=== PATIENT | female | born 1945 | race Caucasian/White ===

== ENCOUNTER 2017-05-17 22:55 | Inpatient (IN) | payer OTHER, MEDICARE ==
[~2017-05-17] VITALS: Ht 157.5 cm; Wt 88.2 kg
[2017-05-17 23:07] VITALS: Ht 157.5 cm; Wt 88.2 kg
[2017-05-17] MEDS ORDERED: ATORVASTATIN CA40 M1 PO (23:44)
[2017-05-17] MEDS ORDERED: JANUVIA100 M1 PO (23:45)
[2017-05-17] MEDS ORDERED: COZAAR100 MG PO (23:45)
[2017-05-17] MEDS ORDERED: METFORMIN HCL1000 MG PO (23:45)
[2017-05-17] MEDS ORDERED: GLIPIZIDE10 M2 PO (23:46)
[2017-05-18 00:48] LABS: BASOPHIL % 0.4 % (0-2); PLATELET COUNT 217 x10^3mcL (130-400); RED CELL DISTRIBUTION WIDTH 13.4 % (11.5-14.5)
[2017-05-18 00:50] LABS: microscopic required? YES; urine erythrocyte NEGATIVE (NEGATIVE)
[2017-05-18 00:58] LABS: CALCIUM 8.9 mg/dL (8.5-10.1); CARBON DIOXIDE 26.5 mmol/L (21-32); CHLORIDE SERUM 105 mmol/L (98-107); GLUCOSE SERUM 259 mg/dL (74-106); POTASSIUM SERUM 4.1 mmol/L (3.5-5.1); SODIUM SERUM 142 mmol/L (136-145)
[2017-05-18 01:03] LABS: ALBUMIN 3.3 g/dL (3.4-5.0); ALKALINE PHOSPHATASE 117 U/L (46-116); ALT/SGPT 34 U/L (14-59); AST/SGOT 15 U/L (15-37); BILIRUBIN TOTAL 0.3 mg/dL (0.20-1.00); CHOLESTEROL 169 mg/dL (<200); HDL CHOLESTEROL 49 mg/dL (40-60); TOTAL PROTEIN, SERUM 7.4 g/dL (6.4-8.2)
[2017-05-18 03:12] VITALS: BP 142/56
[2017-05-18 03:23] LABS: CHOLESTEROL/HDL RATIO 3.3; MAGNESIUM 1.5 mg/dL (1.8-2.4); PHOSPHOROUS 3.2 mg/dL (2.5-4.9)
[2017-05-18 03:29] LABS: FREE T4 1.08 ng/dL (0.76-1.46); FREE THYROXINE INDEX 2.8 ug/dL (1.4-4.5); T3 TOTAL 0.83 ng/mL; T4(THYROXINE) 7.6 ug/dL (4.7-13.3)
[2017-05-18 04:01] LABS: AMPHETAMINE QUAL UR NONE DETECTED (NEG <=1000)
[2017-05-18 04:02] VITALS: BP 142/56
[2017-05-18 05:58] VITALS: BP 135/68
[2017-05-18 06:49] LABS: BASOPHIL % 0.2 % (0-2); PLATELET COUNT 207 x10^3mcL (130-400); RED CELL DISTRIBUTION WIDTH 13.7 % (11.5-14.5)
[2017-05-18 07:19] LABS: CALCIUM 8.4 mg/dL (8.5-10.1); CARBON DIOXIDE 25.4 mmol/L (21-32); CHLORIDE SERUM 107 mmol/L (98-107); CREATININE SERUM 0.8 mg/dL (0.6-1.0); GLUCOSE SERUM 215 mg/dL (74-106); MAGNESIUM 1.5 mg/dL (1.8-2.4); PHOSPHOROUS 3.2 mg/dL (2.5-4.9); SODIUM SERUM 143 mmol/L (136-145)
[2017-05-18 09:21] VITALS: BP 158/69
[2017-05-18 12:25] VITALS: BP 146/69
[2017-05-18 21:10] VITALS: BP 144/61
[2017-05-19] VITALS (7 sets, daily range): BP systolic 126–172; BP diastolic 49–73
[2017-05-19 06:17] LABS: CALCIUM 8.9 mg/dL (8.5-10.1); CARBON DIOXIDE 20.8 mmol/L (21-32); CHLORIDE SERUM 108 mmol/L (98-107); CREATININE SERUM 0.9 mg/dL (0.6-1.0); GLUCOSE SERUM 282 mg/dL (74-106); POTASSIUM SERUM 4.6 mmol/L (3.5-5.1); SODIUM SERUM 140 mmol/L (136-145)
[2017-05-19 06:24] LABS: BASOPHIL % 0.3 % (0-2); PLATELET COUNT 211 x10^3mcL (130-400); RED CELL DISTRIBUTION WIDTH 13.6 % (11.5-14.5)
[2017-05-20 05:12] VITALS: BP 145/65
[2017-05-20 06:08] LABS: PLATELET COUNT 217 x10^3mcL (130-400); RED CELL DISTRIBUTION WIDTH 14.3 % (11.5-14.5)
[2017-05-20 06:38] LABS: CALCIUM 9.3 mg/dL (8.5-10.1); CARBON DIOXIDE 22.7 mmol/L (21-32); CHLORIDE SERUM 107 mmol/L (98-107); CREATININE SERUM 0.9 mg/dL (0.6-1.0); GLUCOSE SERUM 246 mg/dL (74-106); POTASSIUM SERUM 4.6 mmol/L (3.5-5.1); SODIUM SERUM 138 mmol/L (136-145)
[2017-05-20 07:32] LABS: BAND NEUTROPHIL 2 % (0-10); MONOCYTE 3 % (0-7); SEGMENTED NEUTROPHILS 90 % (37-75); rbc morphology (normal/abnorm) NORMAL (NORMAL)
[2017-05-20 09:21] VITALS: BP 132/63
[2017-05-20 10:52] VITALS: BP 132/63
[2017-05-20] MEDS ORDERED: LAC PO (11:41)
[2017-05-20] MEDS ORDERED: LEVOFLOXACIN500 M1 PO (11:41)
[2017-05-20] MEDS ORDERED: MEDDP PO (11:43)
== END 2017-05-20 14:15 | disposition home or self-care (01) | DRG 141 ==
LOC: ED 22:55 → DU 05-18 02:16
PROVIDERS: Emergency Medicine; Family Medicine
DX: J45.901 Unspecified asthma with (acute) exacerbation (principal); N17.0 Acute kidney failure with tubular necrosis; R06.03 Acute respiratory distress; I10 Essential (primary) hypertension; E86.0 Dehydration; E44.0 Moderate protein-calorie malnutrition; E66.9 Obesity, unspecified; Z68.37 Body mass index [BMI] 37.0-37.9, adult; Z88.0 Allergy status to penicillin; E11.65 Type 2 diabetes mellitus with hyperglycemia; R55 Syncope and collapse; E78.5 Hyperlipidemia, unspecified; Z90.49 Acquired absence of other specified parts of digestive tract; E83.42 Hypomagnesemia; E83.51 Hypocalcemia
CPT/HCPCS: 83880; 84439; 87804; 94150; J1815; J1956; J2920; J2930; J3475; J7030; J7613; J7620; Q0092